=== PATIENT | female | born 1960 | race Caucasian/White ===

== ENCOUNTER 2025-06-17 10:10 | Outpatient (CLI) | payer BC, SELFPAY ==
--- NOTE | 2025-06-17 10:17 | RAD_ITS ---
PROCEDURE: LEFT HAND MIN 3 VIEWS 06/17/2025 REASON FOR EXAM: PAIN TECHNIQUE: Procedure Code: ASHLEE Modality: DX Procedure: HAND MIN 3 VIEWS COMPARISON: No relevant prior. FINDINGS: Bones: No fractures or other osseous abnormalities. Joints: Mild degenerative change at the 1st carpometacarpal joint.. Soft tissues: Unremarkable. RAD/Hand Min 3 Views IMPRESSION: Mild degenerative arthritis at the 1st carpometacarpal joint. No acute osseous abnormalities. Reading Location: [place] [id number]
--- NOTE | 2025-06-17 10:17 | RAD_ITS ---
PROCEDURE: HAND RIGHT MIN 3 VIEWS 06/17/2025 REASON FOR EXAM: Pain for years. TECHNIQUE: Procedure Code: ASHLEE Modality: DX Procedure: HAND MIN 3 VIEWS COMPARISON: None. FINDINGS: BONES: No acute fracture or focal osseous lesion. JOINTS: No dislocation. Minimal degenerative changes. SOFT TISSUES: The soft tissues are unremarkable. RAD/Hand Min 3 Views IMPRESSION: No acute findings. Reading Location: [id number]
[2025-06-17 12:09] LABS: Hematocrit 36.7 % (37-47); Hemoglobin 11.6 g/dL (12.0-15.0); Immature Granulocytes Count 0.010 X10^3/uL (0.0-0.0); Mean Corp Hgb Conc 31.6 g/dL (32-36); Mean Corpuscular Volume 81.9 fL (81-99); Mean Platelet Vol. 8.5 fl (6.2-12.0); NRBC Flagged by Analyzer 0 % (0-5); Platelet Count 278 K/mm3 (150-450); RBC Distribution Width CV 14.4 % (11.6-14.6); RBC Distribution Width SD 42.8 fl (35.1-43.9); Red Blood Count 4.48 M/mm3 (4.2-5.4); White Blood Count 3.8 K/mm3 (4.4-11.0)
[2025-06-17 13:36] LABS: AST(SGOT) 22 U/L (<=31); Alanine Aminotransfer ALT/SGPT 21 U/L (<=34); Albumin, Serum 4.1 g/dL (3.4-4.8); Alkaline Phosphatase 88 U/L (35-104); Anion Gap 13 (7-18); BUN 9 mg/dL (4-19); BUN/Creat Ratio 13.3 RATIO (10-20); Calcium,Total 9.3 mg/dL (7.6-11.0); Carbon Dioxide 23.1 mmol/L (20.0-29.0); Chloride 103 mmol/L (96-106); Globulin 3.0 g/dL (2.2-4.2); Glucose 107 mg/dL (70-99); Hepatitis B Surface Antigen Nonreactive (Nonreactive); Hepatitis C Antibody Nonreactive (Nonreactive); Potassium 4.2 mmol/L (3.5-5.1)
[2025-06-17 13:48] LABS: CRP 18.90 mg/L (0.0-3.0)
[2025-06-21 07:07] LABS: QNTFERON TB Mitogen Value > 10.00 IU/mL (.); QNTFERON TB Nil Value 0.10 IU/mL (.); QNTFERON TB1+ Ag Value 0.07 IU/mL (.); QNTFERON TB2+ Ag Value 0.06 IU/mL (.); QNTIFERON TB Positive Criteria Negative (Negative)
== END 2025-06-17 23:59 | disposition home or self-care (01) ==
LOC: MTLAB 10:15
PROVIDERS: PCP Family Medicine; Referring Provider Internal Medicine Rheumatology; Visit Provider Internal Medicine Rheumatology
DX: M05.70 Rheumatoid arthritis with rheumatoid factor of unspecified site without organ or systems involvement (principal); Z79.899 Other long term (current) drug therapy; Z87.19 Personal history of other diseases of the digestive system; K57.90 Diverticulosis of intestine, part unspecified, without perforation or abscess without bleeding; M17.11 Unilateral primary osteoarthritis, right knee; M17.12 Unilateral primary osteoarthritis, left knee
CPT/HCPCS: 36415; 73130; 80053; 85025; 85652; 86140; 86200; 86431; 86480; 86706; 86803; 87340